=== PATIENT | female | born 1945 | race Caucasian/White ===

== ENCOUNTER → 2020-08-10 12:01 | Outpatient (CLI) | payer MEDICARE, SELFPAY ==
--- NOTE | ~2020-08-10 | MR_ITS ---
EXAMINATION: MR shoulder LT wo con DATE: 08/10/2020 13:01 INDICATION: Left shoulder pain TECHNIQUE: Magnetic resonance imaging (MRI) of the left shoulder was performed without intravenous co ntrast. Sequences included axial PD-weighted FS FSE, coronal oblique PD-weighted FS FSE, coronal obli que T2-weighted FS FSE, sagittal PD-weighted FS FSE, and sagittal T1-weighted SE. COMPARISON: None. FINDINGS: Coracoacromial arch: The acromion undersurface is curved in morphology (type II). The coracoacromial ligament is normal. M oderate acromioclavicular osteoarthritis with subarticular cystic change at both sides of the joint s pace. There is a 12 x 8 x 8 mm nodular region of heterogeneous increased fluid signal along the ceph alad margin of the acromioclavicular joint which suggests a ganglion cyst with synovitis. This medial ly underlies the marker indicating the lump of concern. Rotator cuff: Mild supraspinatus and infraspinatus tendinopathy without discrete tear. The teres minor and subscapu katerine tendons are normal. Normal rotator cuff muscle bulk and signal. Biceps tendon, glenoid labrum and glenohumeral cartilage: Mild tendinopathy and longitudinal split tearing of the long head of the biceps tendon. Mild glenohum eral osteoarthritis with deep chondral ulceration with underlying subcutaneous articular edema at the posterior glenoid. Less severe partial thickness cartilage loss with chondral surface irregularity a long the humeral head. Degenerative tearing of the anterosuperior to posterior glenoid labrum with mi ld underlying cystic change along the 1:00 position of the rim of the glenoid. There is additional de generative tearing at the 6:00 position of the inferior glenoid labrum. Fluid: Physiologic amount of fluid in the glenohumeral joint and biceps tendon sheath. No loose osteochondra l bodies. Small amount of fluid in the subacromial/subdeltoid bursa consistent with mild bursitis. Bones/other: Bone alignment is normal. No fracture or pathologic marrow replacing process. There is increased soft tissue with loss of the normal T1 fat signal at the rotator cuff interval which can be seen with adh esive capsulitis which is a clinical diagnosis. IMPRESSION: 1. Mild left glenohumeral osteoarthritis with high-grade chondromalacia along the posterior glenoid a nd with degenerative tearing along portions of the glenoid labrum. 2. Moderate acromioclavicular osteoarthritis with an 11 x 8 x 8 mm likely ganglion cyst with synoviti s cyst along the superior margin of the joint capsule which accounts for the reported lump. 3. Mild supraspinatus and infraspinatus tendinopathy without discrete tear. 4. Mild tendinopathy and longitudinal split tearing of the long head biceps tendon. 5. Loss of normal T1 fat signal at the rotator cuff interval which can be seen with adhesive capsulit is which is a clinical diagnosis. Reviewed, dictated and finalized at location B. IMPRESSION: 1. Mild left glenohumeral osteoarthritis with high-grade chondromalacia along t he posterior glenoid and with degenerative tearing along portions of the glenoi d labrum. 2. Moderate acromioclavicular osteoarthritis with an 11 x 8 x 8 mm likely gangl ion cyst with synovitis cyst along the superior margin of the joint capsule whi ch accounts for the reported lump. 3. Mild supraspinatus and infraspinatus tendinopathy without discrete tear. 4. Mild tendinopathy and longitudinal split tearing of the long head biceps ten don. 5. Loss of normal T1 fat signal at the rotator cuff interval which can be seen with adhesive capsulitis which is a clinical diagnosis.
== END ==
PROVIDERS: Visit Provider Nurse Practitioner Family
DX: M19.012 Primary osteoarthritis, left shoulder (principal)
CPT/HCPCS: 73221

== ENCOUNTER 2020-09-18 08:35 | Outpatient (CLI) | payer MEDICARE, SELFPAY ==
--- NOTE | 2020-09-18 08:00 | ECG_ITS ---
Measurements Intervals [place] Rate: 66 P: 62 NE: 159 QRS: 11 QRSD: 89 T: 58 QT: 381 QTc: 401 Interpretive Statements SINUS RHYTHM INCOMPLETE RIGHT BUNDLE BRANCH BLOCK DELAYED PRECORDIAL R/S TRANSITION BASELINE ARTIFACT- I, II, III, AVR, AVL, AVF BORDERLINE ECG Electronically Signed On 09-18-2020 8:49:53 CDT by Stanley Hinds D.O.
== END 2020-09-18 08:36 | disposition home or self-care (01) ==
LOC: ANHSURGERY 08:38
PROVIDERS: Visit Provider Orthopaedic Surgery
DX: E78.00 Pure hypercholesterolemia, unspecified (principal); Z01.818 Encounter for other preprocedural examination; I45.10 Unspecified right bundle-branch block
CPT/HCPCS: 93005

== ENCOUNTER → 2020-09-19 01:06 | Outpatient (CLI) | payer MEDICARE, SELFPAY ==
[2020-09-19 20:54] LABS: SARS-CoV-2 RNA PCR Negative
== END ==
PROVIDERS: Visit Provider Orthopaedic Surgery
DX: Z01.812 Encounter for preprocedural laboratory examination (principal); Z20.822 Contact with and (suspected) exposure to COVID-19
CPT/HCPCS: C9803; U0003; U0005

== ENCOUNTER 2020-09-23 00:33 | Day surgery (SDC) | payer MEDICARE, SELFPAY ==
[2020-09-14 14:29] VITALS: BMI 31.5
--- NOTE | 2020-09-22 08:28 | PM.IMHP ---
H&P: HPI History of Present Illness Date/Time: 09/22/20 08:28 Shoulder/Arm Injury/Condition 75 year old female with Lt shoulder pain. Pt. states that the pain started to occur in 2019, she states that there is NKI at today's visit. She states she takes ibuprofen PRN for the pain and inflammation. Pt. has had an MRI and is ready to proceed with the next POC. Dominant hand: right Current symptoms: Reports catching, weakness and crepitus Location: anterior Character: intermittent and other (achy ) Pain scale (0-10): 6 Onset: 1-3 months Exacerbated by: lifting, prolonged activity and reaching/overhead motion Previous treatments: Anti-inflammatory meds: left, Heat: left and Other: left (rest ) Improved by treatment/surgery: some Chief Complaint: shoulder pain Review of Systems Review of Systems: All systems reviewed & are unremarkable except as noted in HPI and below Constitutional: Constitutional: Denies headache(s) and Denies weakness Eyes: Eyes: Denies blurry vision, Denies change in vision and Denies loss of vision ENT: Denies dizziness, Denies dry mouth, Denies headache(s) and Denies nasal congestion Cardiovascular: Cardiovascular: Denies chest pain, Denies syncope, Denies leg edema and Denies dyspnea on exertion Respiratory: Respiratory: Denies cough and Denies dyspnea on exertion Gastrointestinal: Gastrointestinal: Denies abdominal pain, Denies constipation and Denies diarrhea Genitourinary: Genitourinary: Denies urinary frequency Musculoskeletal: Musculoskeletal: Reports as per HPI and Denies numbness Integumentary/Breasts: Skin/Breast: Reports system reviewed and no additional complaints, except as docu Neurologic: Denies dizziness, Denies syncope, Denies headache(s), Denies loss of vision, Denies numbness and Denies weakness Psychiatric: Psychiatric: Reports no additional psychiatric complaints Endocrine: Endocrine: Reports no additional endocrine complaints Hematologic/Lymphatic: Hematologic/Lymphatic: Reports no additional hematologic/lymphatic complaints [facility] Past Medical History Medical History AC joint pain Ganglion cyst Left shoulder pain Rotator cuff tear Rotator cuff tendinitis Family History Family History Other Family history of arthritis Social History Social History Smoking status: Never smoker Alcohol intake: current Spiritual care concerns: No Meds Home Medications and Allergies Home Medications Medication Instructions Recorded Confirmed Type biotin 2,500 mcg capsule 2,500 mcg PO DAILY 08/03/20 09/14/20 History gabapentin 400 mg capsule 400 mg PO TID 08/03/20 09/14/20 History ibuprofen 200 mg capsule 200 mg PO Q6H PRN 08/03/20 09/14/20 History rosuvastatin 5 mg tablet 5 mg PO DAILY 08/03/20 09/14/20 History chlorhexidine gluconate 4 % 1 applic TOPICAL ONCE #237 ml 08/26/20 09/14/20 Rx topical liquid cholecalciferol (vitamin D3) 50 mcg PO DAILY 09/14/20 09/14/20 History enalapril maleate 10 mg PO HS 09/14/20 09/14/20 History esomeprazole magnesium [Nexium] 20 mg PO DAILY 09/14/20 09/14/20 History lactobacillus combination no.4 3,000 mmu cells PO DAILY 09/14/20 09/14/20 History [Probiotic] Allergies Allergy/AdvReac Type Severity Reaction Status Date / Time amoxicillin Allergy Unknown Rash Verified 09/14/20 14:05 Exam Narrative: Exam Narrative: Exam Const Constitutional General: cooperative Nutritional Appearance: average body habitus Orientation/consciousness: patient oriented x3 Constitutional Limitations: no limitations HENMT Head: normal to inspection Ears: hearing grossly normal bilaterally General nose exam: Normal external nose present Face and sinus: normal facial exam Mouth: moist mucous membranes Teeth and gingiva: dentition normal Eyes General: appearance normal, bot
[2020-09-23] VITALS (8 sets, daily range): BP systolic 117–161; BP diastolic 60–85; PULSE 66–87; RESP 7–16; TEMP 36–36.3; O2SAT 96–100
--- NOTE | 2020-09-23 07:23 | WPDHPUPDATE1 ---
History and Physical Update Update Date/Time: 09/23/20 07:23 History and Physical has been reviewed, including an updated exam of the patient. There are NO changes in the patient's condition. Risks, benefits, and alternatives have been discussed and questions answered. Patient agrees to proceed with procedure.
--- NOTE | 2020-09-23 08:03 | WPDANESEPPF ---
Anes - Initial Pre Proc Eval Procedure: Operation Date: 09/23/20 13:30 Proposed Procedures p Removal Of Left Shoulder Ganglion Cyst, And Left Shoulder Injection - Shaq Morataya MD Date/Time: 09/23/20 08:03 Surgeon: Shaq Morataya MD Pre Op Diagnosis: Left Shoulder Ganglion cyst Removal,Left Injection Patient Data Age: 75 Gender: F Height: 1.5 m Weight: 70.79 kg Allergies Allergy/AdvReac Type Severity Reaction Status Date / Time amoxicillin Allergy Intermediate Rash Verified 09/23/20 11:47 Home Medications Medication Instructions Recorded Confirmed Type biotin 2,500 mcg capsule 2,500 mcg PO DAILY 08/03/20 09/23/20 History gabapentin 400 mg capsule 400 mg PO TID 08/03/20 09/23/20 History ibuprofen 200 mg capsule 200 mg PO Q6H PRN 08/03/20 09/23/20 History rosuvastatin 5 mg tablet 5 mg PO DAILY 08/03/20 09/23/20 History chlorhexidine gluconate 4 % 1 applic TOPICAL ONCE #237 ml 08/26/20 09/23/20 Rx topical liquid cholecalciferol (vitamin D3) 50 mcg PO DAILY 09/14/20 09/23/20 History enalapril maleate 10 mg PO HS 09/14/20 09/23/20 History esomeprazole magnesium [Nexium] 20 mg PO DAILY 09/14/20 09/23/20 History lactobacillus combination no.4 3,000 mmu cells PO DAILY 09/14/20 09/23/20 History [Probiotic] Patient hx anesthesia problems: none Family hx anesthesia problems: none PMFSH Past Medical History Medical History (Updated 09/23/20 @ 12:36 by Leo Gordon DO) AC joint pain Ganglion cyst GERD (gastroesophageal reflux disease) Hyperlipidemia Hypertension Left shoulder pain Osteoarthritis PONV (postoperative nausea and vomiting) Rotator cuff tear Rotator cuff tendinitis Family History Family History Other Family history of arthritis Social History Social History Smoking status: Never smoker Alcohol intake: current Living arrangements: with family Spiritual care concerns: No Anes - Eval Final PreProcedure Day of Procedure 09/23/20 08:03 Patient weight: obese Heart: regular rate and rhythm Lungs: clear to auscultation and normal air movement Airway: Mallampati scale class II Neurological: alert and oriented Last oral intake: >/= 8 hours ASA classification: III Emergent: no Anesthetic plan: proceed Anesthesia type and monitoring: general ETT and standard monitoring Informed Consent: The patient's anesthetic plan and its attendant risks and benefits were discussed with the patient/family/POA. Questions were solicited and answers provided to the satisfaction of the patient/family/POA.
[2020-09-23] MEDS: CELECOXIB 200 MG CAPSULE PO (12:15)
[2020-09-23] MEDS: LACTATED RINGERS 1,000 ML 30 ML IV CONT ×2 (12:15→14:30)
[2020-09-23] MEDS: ACETAMINOPHEN 500 MG TABLET 1000 MG PO (12:16)
[2020-09-23] MEDS: FAMOTIDINE 20 MG/2 ML VIAL IV PUSH (12:43)
[2020-09-23] MEDS: ceFAZolin 2 GM/D5W 50 ML 2 GM/50 ML BAG IVPB (13:08)
[2020-09-23] MEDS: methylPREDNISolone ACETATE 80 MG/ML VIAL IM (13:51)
[2020-09-23] MEDS: BUPIVACAINE HCL 0.5% PF 30 ML VIAL INFILTRATE (13:52)
--- NOTE | 2020-09-23 14:22 | PM.PROC ---
Procedure Note - Detailed Date of procedure: 09/23/20 Pre-op diagnosis: Left Shoulder Ganglion cyst, Ac Joint djd Post-op diagnosis: same Procedure performed: EXCISION OF GANGLION LEFT AC JOINT WITH DISTAL CLAVICLE EXCISION Description of procedure: THE PATIENT WAS TAKEN TO THE OR AND PLACED UNDER GENERAL ANESTHESIA THEN PLACED IN THE BEACH CHAIR POSITION. THE LEFT UPPER EXTREMITY WAS PREPPED AND DRAPED IN THE USUAL STERILE FASHION. AN INCISION WAS MADE OVER THE REGION OF THE AC JOINT. DISSECTION CONTINUED UNTIL THE GANGLION CYST WAS IDENTIFIED. THE CYST WAS REMOVED IN ITS ENTIRETY. THE STALK OF THE CYST WAS COMMUNICATING WITH THE AC JOINT. NEXT THE AC JOINT CAPSULE WAS INCISED AND A DISTAL CLAVICLE EXCISION WAS PREFORMED REMOVING ABOUT 0.5 CM FROM THE DISTAL CLAVICLE AND THE ACROMION.. THE WOUND WAS IRRIGATED COPIOUSLY. THE CAPSULE WAS REPAIRED WITH O VICRYL SUTURE. THE SUBCUTANEOUS LAYER WAS REPAIRED WITH 2-0 VICRYL AND THE SKIN WITH A 3-0 BARBED SUTURE. SKIN GLUE WAS PLACED WELL AND THEN A STERILE DRESSING WAS APPLIED. NEXT THE LEFT GLENOHUMERAL JOINT WAS INJECTED WITH DEPO MEDROL 80 MG 1 CC AND 5 CC OF MARCAINE 0.5% WITHOUT EPINEPHRINE. THE PATIENT WAS EXTUBATED AND SENT TO RECOVERY ROOM IN STABLE CONDITION. Anesthesia: GETA Surgeon: Shaq Morataya MD Estimated blood loss (mL): 10 Drains: No Packing: No Pathology: yes Complications: No immediate complications Condition: stable Disposition: PACU
== END 2020-09-23 16:07 | disposition home or self-care (01) ==
PROVIDERS: Visit Provider Orthopaedic Surgery
PROC: (CPT 23076; principal; 2020-09-23 13:30)
DX: M67.412 Ganglion, left shoulder (principal); M24.012 Loose body in left shoulder; I10 Essential (primary) hypertension; E78.5 Hyperlipidemia, unspecified; K21.9 Gastro-esophageal reflux disease without esophagitis; E66.9 Obesity, unspecified; Z68.31 Body mass index [BMI] 31.0-31.9, adult
CPT/HCPCS: 23076; 23120; 88305; A4565; A9270; J0330; J0690; J1040; J1100; J2250; J2405; J2704; J3010; J7120

== ENCOUNTER 2021-02-26 09:50 | Outpatient (CLI) | payer MEDICARE, SELFPAY | END 2021-02-26 09:51 | disposition home or self-care (01) | LOC: ANHAUDIO 09:51 | PROVIDERS: Visit Provider Otolaryngology | DX: H69.83 Other specified disorders of Eustachian tube, bilateral (principal) | CPT/HCPCS: 92557; 92567 ==

== ENCOUNTER 2023-06-19 11:27 | Emergency (ER) | payer MEDICARE, SELFPAY ==
[2023-06-19 11:43] VITALS: BP 157/82; PULSE 78; RESP 16; TEMP 36.3; O2SAT 98
--- NOTE | 2023-06-19 11:43 | ED.HEATRA ---
HPI - Head Injury General Chief complaint: Head Injury Stated complaint: Injured Head Time Seen by Provider: 06/19/23 11:43 Source: patient Mode of arrival: ambulatory Limitations: no limitations History of Present Illness HPI Narrative: 78-year-old female presents stating she fell backwards on ice in parking lot and hit her head. Was able to get up on her own. Denies LOC. was bringing her friend to facility for primary care physician appointment. Denies headache, dizziness, fatigue, nausea, vision changes. Was told by her friends primary care physician that she should come to urgent care to be seen for follow-up. Patient has hematoma to scalp, no other complaints today. All systems reviewed and negative except as noted above. Related Data Home Medications Medication Instructions Recorded Confirmed biotin 2,500 mcg capsule 2,500 mcg PO DAILY 08/03/20 12/27/21 gabapentin 400 mg capsule 400 mg PO TID 08/03/20 12/27/21 rosuvastatin 5 mg tablet 5 mg PO DAILY 08/03/20 12/27/21 cholecalciferol (vitamin D3) 50 50 mcg PO DAILY 09/14/20 12/27/21 mcg (2,000 unit) tablet enalapril maleate 10 mg tablet 10 mg PO HS 09/14/20 12/27/21 esomeprazole magnesium 20 mg 20 mg PO DAILY 09/14/20 12/27/21 capsule,delayed release (Nexium) Allergies Allergy/AdvReac Type Severity Reaction Status Date / Time amoxicillin Allergy Intermediate Rash Verified 12/27/21 14:05 amoxicillin Allergy Unknown Rash Uncoded 12/27/21 14:05 Review of Systems Review of Systems: CONSTITUTIONAL: Denies fever, chills, or sweats. EYES: Denies visual changes, redness, or discharge. ENT: Denies rhinorrhea, congestion, sore throat, or otalgia. CARDIOVASCULAR: Denies chest pain, palpitations, or edema. RESPIRATORY: Denies cough or dyspnea. GASTROINTESTINAL: Denies abdominal pain, nausea, vomiting, or diarrhea. GENITOURINARY: Denies dysuria or hematuria. SKIN: Denies rash or itching. Reports hematoma to scalp from fall. MUSCULOSKELETAL: Denies back pain, joint pain, or myalgia. NEUROLOGIC: Denies headache, numbness, or weakness. PSYCHIATRIC: Denies anxiety or depression. All other systems reviewed are negative, except as documented in HPI. PMFSH Past Medical History Medical History (Updated 06/19/23 @ 11:52 by Tangela Buchanan NP) AC joint pain Chronic pain of right knee Effusion of right knee Ganglion cyst GERD (gastroesophageal reflux disease) Hyperlipidemia Hypertension Left knee DJD Left shoulder pain Osteoarthritis PONV (postoperative nausea and vomiting) Primary osteoarthritis of right knee Rotator cuff tear Rotator cuff tendinitis Surgical History Surgical History (Updated 12/27/21 @ 14:06 by Lisa Curtis) No history of previous surgery Family History Family History Mother Heart disease Other Family history of arthritis Social History Social History (Updated 12/27/21 @ 14:06 by Lisa Curtis) Smoking status: Never smoker Alcohol intake: never Substance use: never Substance use type: does not use Living arrangements: with family Occupation/Education: retired Gender identity (if verbalized by the patient): Female Spiritual care concerns: No Comments At time of signature, agree with nursing past medical, surgical, social and family history. There is no relevant family history pertinent to the presenting complaint. Exam Narrative: GENERAL: This is a well-nourished, well-developed patient, in no apparent distress. HEAD: approx. 2cm hematoma to occiput. EYES: PERRL. Sclera clear/white. Vision is grossly intact. Extraocular motions intact. EARS: External ears normal NOSE: External nose normal NECK: Neck supple, non-tender without lymphadenopathy, masses or thyromegaly. CARDIOVASCULAR: Regular rate and rhythm without murmurs, gallops, or rubs. RESPIRATORY: Clear to auscultation. Breath sounds equal bilaterally. No wheezes, rales, or rhonc
== END 2023-06-19 11:55 | disposition home or self-care (01) ==
PROVIDERS: Emergency Provider Nurse Practitioner Family; PCP Family Medicine
DX: S00.03XA Contusion of scalp, initial encounter (principal); S09.90XA Unspecified injury of head, initial encounter; W00.0XXA Fall on same level due to ice and snow, initial encounter; K21.9 Gastro-esophageal reflux disease without esophagitis; E78.5 Hyperlipidemia, unspecified; I10 Essential (primary) hypertension; M17.0 Bilateral primary osteoarthritis of knee
CPT/HCPCS: 99213; G0463

== ENCOUNTER 2023-06-19 13:41 | Emergency (ER) | payer MEDICARE, SELFPAY ==
--- NOTE | ~2023-06-19 | CT_ITS ---
EXAMINATION: CT cervical spine wo con DATE: 06/19/2023 16:04 INDICATION: Head injury. TECHNIQUE: Computed tomography (CT) of the cervical spine was performed without intravenous contrast. Automated exposure control and iterative reconstruction technique were employed. The dose-length pro duct was 225.03 mGy-cm. COMPARISON: Cervical spine radiographs 03/13/2013 FINDINGS: There is 2 mm anterolisthesis of C3 on C4 and 2 mm retrolisthesis of C4 on C5. There is 2 m m anterolisthesis of T1 on T2 and T2 on T3. Vertebral body heights are normal. There is mildly decrea sed disc height at C2-C3 and severely decreased disc height from C4-C5 through C7-T1: The following d isc levels are specifically discussed: C2-C3: There is severe bilateral severe bilateral uncovertebral joint osteoarthritis. There is mild b ilateral facet joint osteoarthritis. There is mild left neural foraminal stenosis. There is no centra l canal stenosis. C3-C4: There is severe bilateral uncovertebral joint osteoarthritis. There is severe bilateral facet joint osteoarthritis. There is mild bilateral neural foraminal stenosis. There is mild central canal stenosis. C4-C5: There is severe bilateral uncovertebral joint osteoarthritis. There is mild bilateral facet atlib int osteoarthritis. There is moderate right and mild left neural foraminal stenosis. There is mild ce ntral canal stenosis. C5-C6: There is severe bilateral uncovertebral joint osteoarthritis. There is moderate right and mild left facet joint osteoarthritis. There is moderate right and mild left neural foraminal stenosis. Th ere is mild central canal stenosis. C6-C7: There is severe bilateral uncovertebral joint osteoarthritis. There is severe right and modera te left facet joint osteoarthritis. There is mild bilateral neural foraminal stenosis. There is mild central canal stenosis. C7-T1: There is severe bilateral uncovertebral joint osteoarthritis. There is severe bilateral facet joint osteoarthritis. There is mild bilateral neural foraminal stenosis. There is mild central canal stenosis. IMPRESSION: 1. No fracture. 2. Severe cervical spondylosis. Reviewed, dictated and finalized at location E. HOLOGIST RESEARCH ASSISTANT
--- NOTE | ~2023-06-19 | CT_ITS ---
EXAMINATION: CT brain wo con DATE: 06/19/2023 16:04 INDICATION: Headache. Head injury. TECHNIQUE: Computed tomography (CT) of the head was performed without intravenous contrast. The mA wa s adjusted according to patient size. Iterative reconstruction technique was employed. The dose-lengt h product was 605.33 mGy-cm. COMPARISON: None FINDINGS: There are scattered areas of low attenuation in the cerebral white matter, which is within normal limits for the patient's age. There is no intracranial hemorrhage, acute infarction, or abnorm al intracranial mass lesion. The ventricles are normal in size. The orbits are normal. There is mild mucosal thickening in the ethmoid sinuses. There is a trace left mastoid effusion. IMPRESSION: 1. Normal aging brain. Reviewed, dictated and finalized at location E. RVISOR INSECTICIDE IMPRESSION: 1. Normal aging brain.
[2023-06-19 14:02] VITALS: BP 144/78; PULSE 76; RESP 16; TEMP 36.6; O2SAT 99
--- NOTE | 2023-06-19 16:38 | ED.FALL ---
HPI - Fall General Chief Complaint: Fall Stated Complaint: fall, head injury Time Seen by Provider: 06/19/23 16:22 History of Present Illness HPI Narrative: 78-year-old female presenting to the emergency department after having a ground fall. Patient was walking outside when she slipped on the ice. Patient fell back and struck her head. The patient denies any loss consciousness. Patient did have a headache for approximately 10 minutes but states since resolved. Patient denies any other pain or injury. Related Data Home Medications Medication Instructions Recorded Confirmed biotin 2,500 mcg capsule 2,500 mcg PO DAILY 08/03/20 12/27/21 gabapentin 400 mg capsule 400 mg PO TID 08/03/20 12/27/21 rosuvastatin 5 mg tablet 5 mg PO DAILY 08/03/20 12/27/21 cholecalciferol (vitamin D3) 50 50 mcg PO DAILY 09/14/20 12/27/21 mcg (2,000 unit) tablet enalapril maleate 10 mg tablet 10 mg PO HS 09/14/20 12/27/21 esomeprazole magnesium 20 mg 20 mg PO DAILY 09/14/20 12/27/21 capsule,delayed release (Nexium) Allergies Allergy/AdvReac Type Severity Reaction Status Date / Time amoxicillin Allergy Intermediate Rash Verified 12/27/21 14:05 amoxicillin Allergy Unknown Rash Uncoded 12/27/21 14:05 Review of Systems Review of Systems: All systems reviewed & are unremarkable except as noted in HPI and below PMFSH Past Medical History Medical History (Updated 06/20/23 @ 00:00 by Charlette Tompkins) AC joint pain Chronic pain of right knee Effusion of right knee Ganglion cyst GERD (gastroesophageal reflux disease) Hyperlipidemia Hypertension Left knee DJD Left shoulder pain Osteoarthritis PONV (postoperative nausea and vomiting) Primary osteoarthritis of right knee Rotator cuff tear Rotator cuff tendinitis Surgical History Surgical History (Updated 12/27/21 @ 14:06 by Lisa Curtis) No history of previous surgery Family History Family History Mother Heart disease Other Family history of arthritis Social History Social History (Updated 12/27/21 @ 14:06 by Lisa Curtis) Smoking status: Never smoker Alcohol intake: never Substance use: never Substance use type: does not use Living arrangements: with family Occupation/Education: retired Gender identity (if verbalized by the patient): Female Spiritual care concerns: No Exam Narrative: APPEARANCE: Well appearing, no pain, no distress, well-nourished. HEAD: normocephalic, atraumatic. EYES: PERRLA/EOMI, conjunctivae clear. NOSE: Normal no drainage EARS:TMS clear with good light reflex. THROAT: Pharynx clear, no exudate. NECK: Supple. No adenopathy, no masses. RESPIRATORY: Airway patent, respirations nonlabored. Clear to auscultation bilaterally, no rales, rhonchi, wheezing. CARDIOVASCULAR: Regular rate and rhythm without murmurs rubs or gallops. ABDOMINAL: Soft, nontender, nondistended, normal bowel sounds MUSCULOSKELETAL: Moves all extremities. Strength/ROM intact, No edema, No calf tenderness. NEURO: Alert. Cranial nerves II through XII intact. Good gait. Good coordination SKIN: Warm, dry. Normal Color PSYCHIATRIC: Normal affect/mood. Course Course Emergency Course: 78-year-old female presenting to the emergency department for evaluation after a ground level fall. Patient's head and cervical spine CT were negative. Vital Signs Vital signs: Vital Signs Temperature 98 F 06/19/23 14:02 Pulse Rate 76 06/19/23 14:02 Respiratory Rate 16 06/19/23 14:02 Blood Pressure 144/78 H 06/19/23 14:02 Pulse Oximetry 99 06/19/23 14:02 Oxygen Delivery Room Air 06/19/23 14:02 Temperature 98 F 06/19/23 14:02 Pulse Rate 76 06/19/23 14:02 Respiratory Rate 16 06/19/23 14:02 Blood Pressure 144/78 H 06/19/23 14:02 Pulse Oximetry 99 06/19/23 14:02 Oxygen Delivery Room Air 06/19/23 14:02 MDM - Fall Differential Diagnosis Differential diagnosis: L
== END 2023-06-19 16:50 | disposition home or self-care (01) ==
LOC: ANHED 16:42
PROVIDERS: Emergency Provider Emergency Medicine; PCP Family Medicine
DX: S09.90XA Unspecified injury of head, initial encounter (principal); I10 Essential (primary) hypertension; E78.5 Hyperlipidemia, unspecified; K21.9 Gastro-esophageal reflux disease without esophagitis; M17.0 Bilateral primary osteoarthritis of knee; M47.812 Spondylosis without myelopathy or radiculopathy, cervical region; W00.0XXA Fall on same level due to ice and snow, initial encounter
CPT/HCPCS: 70450; 72125; 99284

== ENCOUNTER 2023-06-22 10:49 | Outpatient (CLI) | payer MEDICARE, SELFPAY ==
--- NOTE | 2023-06-22 11:09 | ECG_ITS ---
Measurements Intervals [place] Rate: 71 P: 67 VT: 152 QRS: 9 QRSD: 78 T: 66 QT: 372 QTc: 406 Interpretive Statements SINUS RHYTHM INCOMPLETE RIGHT BUNDLE BRANCH BLOCK BORDERLINE ST-T WAVE ABNORMALITY- ANTEROLAT/HIGH LAT LEADS BASELINE ARTIFACT- II, III, AVR, AVL, AVF BORDERLINE ECG COMPARED TO ECG 09/18/2020 08:46:48 ST-T WAVE ABNORMALITY NOW PRESENT Electronically Signed On 06-22-2023 11:35:26 PROCESS EXCELLENCE MANAGER by Stanley Hinds D.O.
[2023-06-22 11:30] LABS: Appearance Urine Clear (Clear); Bilirubin Urine Negative (Negative); Blood Urine Negative (Negative); Color Urine Yellow (Yellow); Glucose Urine UA Negative (Negative); Ketones Urine Negative (Negative); Leukocyte Esterase Ur Negative LEU/UL (Negative); Nitrate Urine Negative (Negative); Protein Urine Negative (Negative); Specific Grav Ur 1.018 (1.001-1.035); pH Urine 6.5 (5.0-9.0)
[2023-06-22 11:32] LABS: Add Urine Microscopic? NO
== END 2023-06-22 10:50 | disposition home or self-care (01) ==
PROVIDERS: PCP Family Medicine; Visit Provider Nurse Practitioner Family
DX: R53.83 Other fatigue (principal); I45.10 Unspecified right bundle-branch block
CPT/HCPCS: 81003; 93005

== ENCOUNTER 2023-09-05 10:00 | Outpatient (CLI) | payer MEDICARE, SELFPAY ==
[2023-09-05 11:11] LABS: Basophils Absolute Auto 0.1 K/mm3 (0.0-0.1); Basophils Percent Auto 1.1 % (0.2-1.2); Eosinophils Absolute Auto 0.1 K/mm3 (0-0.3); Eosinophils Percent Auto 1.1 % (0-4.4); Hemoglobin 13.4 g/dL (12.0-15.0); Immature Granulocyte Absolute 0.02 K/mm3 (0.00-0.031); Immature Granulocyte Percent A 0.4 % (0-0.5); Lymphocytes Absolute Auto 0.99 K/mm3 (0.9-3.2); Lymphocytes Percent Auto 18.3 % (18.3-44.2); Mean Corpuscular HGB Conc 32.7 g/dl (32-36); Mean Corpuscular Hemoglobin 29.8 pg (26-34); Mean Corpuscular Volume 91.1 fl (80-100); Mean Platelet Volume 9.7 fl (7.4-10.4); Monocytes Absolute Auto 0.5 K/mm3 (0.1-0.6); Monocytes Percent Auto 8.7 % (2.6-8.5); Neutrophils Absolute Auto 3.8 K/mm3 (1.3-6.7); Neutrophils Percent Auto 70.4 % (45.5-73.1); Platelet Count Result 181 k/mm3 (150-375); Red Cell Distribution Width 12.8 % (11.5-14.5); White Blood Count 5.4 K/mm3 (4.5-10.0)
[2023-09-05 11:12] LABS: Appearance Urine Clear (Clear); Bilirubin Urine Negative (Negative); Blood Urine Negative (Negative); Color Urine Dark Yellow (Yellow); Glucose Urine UA Negative (Negative); Ketones Urine Negative (Negative); Leukocyte Esterase Ur Negative LEU/UL (Negative); Nitrate Urine Negative (Negative); Protein Urine Negative (Negative); Specific Grav Ur 1.014 (1.001-1.035); Urobilinogen Urine 0.2 mg/dL (<2.0)
[2023-09-05 11:23] LABS: Albumin Level 4.9 g/dL (3.5-5.1); Anion Gap 8 mmol/L (4-12); Blood Urea Nitrogen 18 mg/dL (7-17); Calcium 9.6 mg/dL (8.4-10.2); Carbon Dioxide 28 mmol/L (22-30); Chloride 105 mmol/L (98-107); Estimated Glomerular Filt Rate > 60; Glucose 104 mg/dL (65-110); Hemoglobin A1C 5.6 % (<5.7); Potassium 4.2 mmol/L (3.4-5.0); Sodium 141 mmol/L (137-145)
[2023-09-05 11:25] LABS: Partial Thromboplastin Time 27.8 Seconds (22.3-36.8); Prothrombin Time 13.8 Seconds (11.1-14.7)
[2023-09-05 11:26] LABS: Urine Cotinine NEGATIVE
[2023-09-05 11:51] LABS: Add Urine Microscopic? NO
[2023-09-05 12:25] LABS: MRSA (PCR) NOT DETECTED (NOT DETECTE)
== END 2023-09-05 10:01 | disposition home or self-care (01) ==
LOC: ANHSURGERY 10:05
PROVIDERS: PCP Family Medicine; Visit Provider Orthopaedic Surgery
DX: M17.11 Unilateral primary osteoarthritis, right knee (principal); Z01.818 Encounter for other preprocedural examination
CPT/HCPCS: 80048; 80307; 81003; 82040; 83036; 85025; 85610; 85730; 87641

== ENCOUNTER 2023-09-19 00:25 | Day surgery (SDC) | payer MEDICARE, SELFPAY ==
--- NOTE | 2023-09-05 09:40 | PC.NURSE ---
PRE-OP INSTRUCTIONS, PLEASE READ CAREFULLY Report to the Outpatient Waiting Room, entrance under the green pavilion located off [facility], at time _1000_ on date _09/19/23_. Planned Procedure Time: _1200_. PACK A SMALL OVERNIGHT BAG AND LEAVE IN THE CAR ALONG WITH YOUR WALKER Time changes happen often and if your time is changed the preop area will call you the afternoon before. - You and your visitor will be asked to self-screen and do not enter if you have any COVID symptoms. - A mask is optional within the hospital at this time. -VISITING HOURS 8AM-8PM Patients may have clear liquids (water, carbonated beverages, clear teas, apple juice) until 3 hours prior to surgery (0900 AM) with a maximum of 20 ounces. - No food from midnight until time of surgery Take the following medications with a SIP of water the morning of surgery: _GABAPENTIN, & TYLENOL IF NEEDED_ DO NOT STOP ANY OF YOUR OTHER PRESCRIPTION MEDICATIONS PRIOR TO SURGERY ?EXCEPT THE FOLLOWING Medications to discontinue per DR. DONOVAN - _ IBUPROFEN 7 DAYS PRIOR TO SURGERY, Date to take last dose 09/11/23_ Please no make-up, nail stateless, hairspray, perfume, deodorant, or body powder the day of surgery. No jewelry (including any body piercings) or valuables the day of surgery, leave them at home. Please take a shower or bath the night before, or the morning of, surgery with an antibacterial soap. Wear comfortable, loose fitting clothing. - Jewelry must be removed prior to entering the operating room. Rings and piercings that are not removed may be cut off. - The hospital will not accept responsibility for valuables. - Please leave all valuables, including medications, at home the day of surgery. If you are going home after surgery, a licensed hook up driver must drive you home. - NO public transportation without another adult if you receive anesthesia. - We recommend that an adult stay with you for 24 hours following discharge. - We also recommend that you do not drive, make important decision, drink alcoholic beverages, or take any drugs that were not prescribed by your health care provider for at least 24 hours after your discharge time. Follow any additional instructions given to you from your surgeon. HIBICLENS DIRECTED If you or anyone in your household have experienced Covid symptoms in the past week, please notify your surgeon or the nurse liaison at the phone number below for possible testing. Instructions given to _PATIENT & SPOUSE_and asked if any additional questions and then verbalized understanding. Patient advised to call surgeon office or pre surgery nurse liaison [phone] if any additional questions.
[2023-09-05 10:25] VITALS: BP 158/72; PULSE 66; RESP 18; TEMP 36.8; O2SAT 100; BMI 31.0
[2023-09-19] VITALS (15 sets, daily range): BP systolic 121–165; BP diastolic 57–84; PULSE 65–84; RESP 12–21; TEMP 36.2–36.6; O2SAT 92–100
--- NOTE | ~2023-09-19 | XR_ITS ---
EXAMINATION: [id number] DATE: 09/19/2023 15:05 CDT INDICATION: Right total knee arthroplasty TECHNIQUE: 2 views right knee FINDINGS: There is a right total knee arthroplasty in expected position. Subcutaneous gas with fluid and air in the joint and overlying skin sobeida are consistent with recent surgery. No evidence of p eriprosthetic fracture. IMPRESSION: 1. Recent right total knee arthroplasty. Reviewed, dictated and finalized at location B.
--- NOTE | 2023-09-19 10:28 | WPDHPUPDATE1 ---
History and Physical Update Update Date/Time: 09/19/23 10:28 History and Physical has been reviewed, including an updated exam of the patient. There are NO changes in the patient's condition. Risks, benefits, and alternatives have been discussed and questions answered. Patient agrees to proceed with procedure.
[2023-09-19] MEDS: LACTATED RINGERS 1,000 ML 30 ML IV CONT ×2 (10:30→14:52)
[2023-09-19] MEDS: ACETAMINOPHEN 500 MG TABLET 1000 MG PO (11:00)
[2023-09-19] MEDS: TRANEXAMIC ACID 1,000MG/ISO100 1,000 MG/100 ML BAG 200 MG IVPB (11:00)
--- NOTE | 2023-09-19 11:47 | WPDANESEPPF ---
Anes - Initial Pre Proc Eval Procedure: Operation Date: 09/19/23 12:00 Proposed Procedures p Right Total Knee Arthroplasty - Shaq Morataya MD Date/Time: 09/19/23 11:47 Surgeon: Shaq Morataya MD Pre Op Diagnosis: right knee OA Patient Data Age: 78 Gender: F Height: 1.47 m Weight: 67.4 kg Last Vital Signs Temp 98.3 F 09/05/23 10:25 Pulse 66 09/05/23 10:25 Resp 18 09/05/23 10:25 BP 158/72 H 09/05/23 10:25 Pulse Ox 100 09/05/23 10:25 O2 Del Method Room Air 09/05/23 10:25 Allergies Allergy/AdvReac Type Severity Reaction Status Date / Time amoxicillin Allergy Intermediate Rash Verified 09/19/23 11:46 Home Medications Medication Instructions Recorded Confirmed Type gabapentin 400 mg capsule 400 mg PO TID 08/03/20 09/19/23 History rosuvastatin 5 mg tablet 5 mg PO DAILY 08/03/20 09/19/23 History cholecalciferol (vitamin D3) 50 50 mcg PO DAILY 09/14/20 09/19/23 History mcg (2,000 unit) tablet enalapril maleate 10 mg tablet 10 mg PO HS 09/14/20 09/19/23 History esomeprazole magnesium 20 mg 20 mg PO DAILY 09/14/20 09/19/23 History capsule,delayed release (Nexium) acetaminophen 500 mg tablet 500 mg PO BID 09/05/23 09/19/23 History chlorhexidine gluconate 4 % 1 applic topical DAILY #237 mL 09/05/23 09/19/23 Rx topical liquid (Hibiclens) clobetasol 0.05 % scalp solution See Rx Instructions .Route .COMPLEX 09/05/23 09/19/23 History fluocinolone 0.01 % topical 1 applic topical BID 09/05/23 09/19/23 History solution fluticasone propionate 50 2 spray intranasal DAILY 09/05/23 09/19/23 History mcg/actuation nasal spray,suspension hydrocortisone 2.5 % topical 1 applic topical TID PRN 09/05/23 09/19/23 History ointment Hemorrhoids ibuprofen 200 mg tablet 400 mg PO BID 09/05/23 09/19/23 History Laboratory Tests 09/19/23 10:40 Blood Type Pending Antibody Screen Pending Patient hx anesthesia problems: none Family hx anesthesia problems: none Results Review: All pre-operative results and documents have been reviewed as part of the pre-operative evaluation. [facility] Past Medical History Medical History AC joint pain Chronic pain of right knee Effusion of right knee Ganglion cyst GERD (gastroesophageal reflux disease) Hyperlipidemia Hypertension Left knee DJD Left shoulder pain Osteoarthritis Other fatigue PONV (postoperative nausea and vomiting) Primary osteoarthritis of right knee Right knee DJD Rotator cuff tear Rotator cuff tendinitis Surgical History Surgical History No history of previous surgery Family History Family History Mother Heart disease Other Family history of arthritis Social History Social History Smoking status: Never smoker Second hand tobacco smoke exposure: No Additional smoking assessment comments: PT DENIES ALL FORMS OF TOBACCO USE Alcohol intake: current Alcohol use details: RARELY - STATES 3-4 DRINKS/YEAR Substance use: never Substance use type: does not use Living arrangements: with family Occupation/Education: retired Gender identity (if verbalized by the patient): Female Spiritual care concerns: No Anes - Eval Final PreProcedure Day of Procedure 09/19/23 11:47 Patient weight: overweight Heart: regular rate and rhythm Lungs: clear to auscultation Airway: Mallampati scale and special considerations (many caps, all intact per pt. ) Neurological: alert and oriented Last oral intake: >/= 8 hours ASA classification: II Emergent: no Anesthetic plan: proceed Anesthesia type and monitoring: general LMA and standard monitoring Results Review: All pre-operative results and documents have been reviewed as part of the pre-operative eval
--- NOTE | 2023-09-19 12:49 | WPDANESPNB ---
Anes - Peripheral Nerve Block Date/Time: 09/19/23 12:49 I have discussed with the patient/family/POA the placement of a peripheral nerve block for post-operative pain management, including associated risks, benefits, complications, and side effects. Alternative methods of post-operative analgesia were detailed. Questions were solicited and answers provided to the satisfaction of the patient/family/POA. Time-Out: A pre-procedural Time-Out was completed immediately before starting the procedure and confirmed: Patient Identification, Site, Procedure, Patient Position and the Availability of Requisite Equipment. Clinical Indications: Acute post-operative pain management requested by the operative surgeon. Nerve Block Insertion Note Anes-nerve block: adductor canal Patient position: supine Skin prep: chlorhexidine Needle: 22 gauge, stimulating, insulated echogenic needle. Needle length: 80 mm Technique: ultrasound Injectate: other (Bupiv 0.5%, 15 mls. ) Observations: tolerated well Complications: none Procedure start time:: 1230 Procedure end time:: 1240
[2023-09-19] MEDS: ceFAZolin 2 GM/D5W 50 ML 2 GM/50 ML BAG IVPB ×2 (13:07→20:22)
[2023-09-19] MEDS: TRANEXAMIC ACID 1,000 MG/10 ML AMPUL 1000 MG IV PUSH (14:14)
--- NOTE | 2023-09-19 14:44 | W.PM.PROC2 ---
Procedure Note - Detailed Date of Procedure 09/19/23 Pre-op Diagnosis right knee OA Post-op Diagnosis Same Procedure Performed R TKA Surgeon Shaq Morataya MD Anesthesia General Description of Procedure THE RIGHT KNEE WAS PREPPED AND DRAPED IN THE STERILE FASHION. THERE WAS A 10 DEGREE FLEXION CONTRACTURE. A MIDLINE SKIN INCISION WAS MADE. A MEDIAL PARAPATELLAR ARTHROTOMY WAS MADE. THE PATELLA WAS EVERTED. THERE WAS TRICOMPARTMENT DJD. THERE WAS MINIMAL PATELLA DJD. AN INTRAMEDULLARY CALDERON WAS PLACED IN THE FEMUR. A DISTAL FEMORAL CUT WAS MADE IN 5 DEGREES OF VALGUS REMOVING APPROXIMATELY 9 MM OF BONE FROM THE DISTAL FEMUR. THE FEMUR WAS SIZED TO 60. A 60 FEMORAL CUTTING BLOCK WAS PLACED IN 3 DEGREES OF EXTERNAL ROTATION AND IN ALIGNMENT WITH SAMIR'S LINE AND THE TRANSEPICONDYLAR AXIS. ANTERIOR POSTERIOR AND CHAMFER CUTS WERE MADE. THE CUTS WERE EXCELLENT. NEXT AN INTRAMEDULLARY CUTTING GUIDE WAS PLACED IN THE TIBIA. A TRANS TIBIAL CUT WAS MADE ALONG THE LONG AXIS OF THE TIBIA. APPROXIMATELY 10 MM OF BONE WAS REMOVED FROM THE HIGH SIDE OF THE TIBIA. THE TIBIA WAS THEN PLANED TO A SMOOTH SURFACE. POSTERIOR FEMORAL OSTEOPHYTES WERE REMOVED FROM THE FEMORAL CONDYLES. A 71 TIBIAL TRIAL WAS PLACED IN ALIGNMENT WITH THE 1/3 MEDIAL ASPECT OF THE TIBIAL TUBERCLE. THEN A 60 FEMORAL TRIAL COMPONENT WAS PLACED. BOTH HAD EXCELLENT FITS. EVENTUALLY A 12 POLYETHYLENE TRIAL COMPONENT WAS PLACED. THE KNEE WAS TAKEN THROUGH A RANGE OF MOTION. THE KNEE CAME OUT TO FULL EXTENSION. THERE WAS NO ABNORMAL TILT TO THE PATELLA. THERE WAS GOOD A/P AND VARUS/VALGUS STABILITY. THERE WAS NO EXCESSIVE ROLL BACK WITH FLEXION. THE TRIAL COMPONENTS WERE REMOVED. THEN A 60 FEMORAL COMPONENT AND 71 TIBIAL COMPONENT WITH A 12 POLYETHYLENE COMPONENT WERE CEMENTED INTO PLACE. ONCE THE CEMENT WAS HARD THE KNEE WAS TAKEN THROUGH A ROM AGAIN AND FOUND TO BE STABLE WITH NO PATELLA TILT NO EXCESSIVE ROLL BACK WITH FLEXION AND GOOD STABILITY WITH COMPLETE AND FULL EXTENSION. THE KNEE WAS IRRIGATED WITH STERILE BETADINE AND WATER FOR ABOUT 3 MINUTES. THE BLEEDERS WERE CAUTERIZED. THE ARTHROTOMY WAS REPAIRED WITH NUMBER 1 VICRYL. THE SUB CUTANEOUS LAYER WITH 2-0 VICRYL AND THE SKIN WITH RUTH. THE WOUND WAS WASHED AND A STERILE DRESSING WAS APPLIED. PATIENT WAS EXTUBATED. Estimated Blood Loss 100 Pathology None sent Complications No immediate complications Condition Stable Disposition PACU
[2023-09-19] MEDS: fentaNYL CITRATE INJ (*CRX) 100 MCG/2 ML VIAL 25 MCG IV PUSH ×4 (15:29→15:51)
[2023-09-19] MEDS: oxyCODONE HCL (*CRX) 5 MG TAB IR PO (16:05)
--- NOTE | 2023-09-19 17:00 | ADMGEN ---
This patient, Rola Roach, was admitted to Medical Room 249-01. Patient/family oriented to hospital policies and general routines including ID bracelet, bed and alarms, visiting hours, pain management, procedures, bathroom and other care routines, personal items, smoking policy, room service/diet, and visiting hours. Information on how to activate the Rapid Response Team has been discussed. Patient/Family are encouraged to report perceived risks to care and to ask questions if they do not understand what they are told or what they should do.
[2023-09-19] MEDS: CELECOXIB 200 MG CAPSULE PO (18:01)
[2023-09-19] MEDS: oxyCODONE/ACETAMINOPHEN (*CRX) 5-325 MG TABLET 1 TABLET PO ×2 (19:37→23:47)
[2023-09-19] MEDS: ENALAPRIL MALEATE 10 MG TABLET PO (20:20)
[2023-09-19] MEDS: ASPIRIN 325 MG ENTERIC TABLET PO (20:20)
[2023-09-19] MEDS: FAMOTIDINE 20 MG TABLET PO (20:20)
[2023-09-19] MEDS: ONDANSETRON INJ 4 MG/2 ML VIAL IV PUSH (20:27)
[2023-09-19] MEDS: diazePAM (*CRX) 5 MG TABLET PO (23:47)
[2023-09-20 01:23] VITALS: BP 121/60; PULSE 65; RESP 18; TEMP 37; O2SAT 92
[2023-09-20] MEDS: ceFAZolin 2 GM/D5W 50 ML 2 GM/50 ML BAG IVPB ×2 (04:35→12:27)
[2023-09-20] MEDS: oxyCODONE/ACETAMINOPHEN (*CRX) 5-325 MG TABLET 1 TABLET PO ×3 (04:39→15:55)
[2023-09-20 04:51] VITALS: BP 118/67; PULSE 70; RESP 18; TEMP 37.1; O2SAT 96
[2023-09-20 06:03] LABS: Basophils Percent Auto 0.1 % (0.2-1.2); Hematocrit 36.2 % (37.0-47.0); Hemoglobin 11.6 g/dL (12.0-15.0); Immature Granulocyte Absolute 0.08 K/mm3 (0.00-0.031); Immature Granulocyte Percent A 0.6 % (0-0.5); Lymphocytes Absolute Auto 0.63 K/mm3 (0.9-3.2); Lymphocytes Percent Auto 4.6 % (18.3-44.2); Mean Corpuscular Hemoglobin 29.7 pg (26-34); Mean Corpuscular Volume 92.8 fl (80-100); Mean Platelet Volume 9.8 fl (7.4-10.4); Monocytes Absolute Auto 0.8 K/mm3 (0.1-0.6); Monocytes Percent Auto 5.4 % (2.6-8.5); Neutrophils Absolute Auto 12.3 K/mm3 (1.3-6.7); Neutrophils Percent Auto 89.3 % (45.5-73.1); Platelet Count Result 186 k/mm3 (150-375); Red Cell Distribution Width 12.9 % (11.5-14.5); White Blood Count 13.8 K/mm3 (4.5-10.0)
[2023-09-20 06:21] LABS: Anion Gap 8 mmol/L (4-12); Blood Urea Nitrogen 16 mg/dL (7-17); Calcium 8.8 mg/dL (8.4-10.2); Carbon Dioxide 26 mmol/L (22-30); Chloride 100 mmol/L (98-107); Estimated Glomerular Filt Rate > 60; Glucose 139 mg/dL (65-110); Sodium 134 mmol/L (137-145)
--- NOTE | 2023-09-20 08:08 | WPDANESPN ---
Anes - Prog Note Post-Op Date/Time: 09/20/23 08:08 Cardiovascular status: normal Respiratory status: normal Airway patency: baseline Mental status: baseline Post-Op hydration status: normal Vital Signs: Last Vital Signs Temp 37.1 C 09/20/23 04:51 Pulse 70 09/20/23 04:51 Resp 18 09/20/23 04:51 BP 118/67 09/20/23 04:51 Pulse Ox 96 09/20/23 04:51 O2 Del Method Room Air 09/19/23 21:15 O2 Flow Rate 2 09/19/23 16:35 Pain Score (VAS): 0 I/O: Intake & Output 09/19/23 09/20/23 09/20/23 23:59 07:59 15:59 Intake Total 650 600 Output Total 300 500 Balance 350 100 Laboratory Tests 09/20/23 05:44 09/20/23 05:44 09/19/23 09/20/23 10:40 05:44 WBC 13.8 H RBC 3.90 L Hgb 11.6 L Hct 36.2 L MCV 92.8 MCH 29.7 MCHC 32.0 RDW 12.9 Plt Count 186 MPV 9.8 Immature Gran % (Auto) 0.6 H Neut % (Auto) 89.3 H Lymph % (Auto) 4.6 L [place] % (Auto) 5.4 Eos % (Auto) 0.0 Baso % (Auto) 0.1 L Lymph # (Auto) 0.63 L [place] # (Auto) 0.8 H Eos # (Auto) 0.0 Baso # (Auto) 0.0 Abs Immat Gran (auto) 0.08 H Absolute Neuts (auto) 12.3 H Absolute Nucleated RBC 0.000 Nucleated RBC % 0.0 Sodium 134 L Potassium 4.0 Chloride 100 Carbon Dioxide 26 Anion Gap 8 BUN 16 Creatinine 0.70 Estim Creat Clear Calc Not Reportable Estimated GFR > 60 Glucose 139 H Calcium 8.8 Blood Type B Positive Antibody Screen Negative Post-procedural complaints: none Patient Feedback: Patient satisfied with anesthetic care.
[2023-09-20] MEDS: ASPIRIN 325 MG ENTERIC TABLET PO (08:12)
[2023-09-20] MEDS: FAMOTIDINE 20 MG TABLET PO (08:12)
[2023-09-20] MEDS: CELECOXIB 200 MG CAPSULE PO (08:12)
[2023-09-20] MEDS: ROSUVASTATIN 5 MG TABLET PO (08:13)
[2023-09-20] MEDS: SENNA/DOCUSATE SODIUM TABLET 2 TAB PO (08:13)
[2023-09-20 10:36] VITALS: BP 116/54; PULSE 60; RESP 17; TEMP 36.8; O2SAT 95
[2023-09-20 13:21] VITALS: BP 118/49; PULSE 62; RESP 17; TEMP 36.6; O2SAT 96
--- NOTE | 2023-09-20 15:15 | PM.DS ---
DS: Admitting Diagnosis Discharge Date 09/20/23 Admitting Diagnosis right knee djd DS: Discharge Diagnosis Discharge Diagnosis (1) Right knee DJD: Code(s): M17.11 - Unilateral primary osteoarthritis, right knee Status: Acute Plan POD 1 DOING WELL WITH GOOD PT PROGRESS. OK TO DC HOME F/U IN 3WEEKS DS: Summary Hospital Course Reason for hospitalization: RIGHT TKA Hospital Course: PATIENT WAS ADMITTED S/P TOTAL KNEE ARTHROPLASTY FOR POSTOPERATIVE MEDICAL MANAGEMENT, PAIN CONTROL AND MOBILIZATION WITH PHYSICAL AND OCCUPATIONAL THERAPY. THE PATIENT PROGRESSED WELL WITH PT/OT. LABS AND VITALS REMAINED STABLE AND PAIN WELL CONTROLLED. THE PATIENT HAS BEEN CLEARED TO BE DISCHARGED HOME. FOLLOW UP APPOINTMENT SCHEDULED. DISCHARGE INSTRUCTIONS DISCUSSED AT LENGTH WITH THE PATIENT. MEDICATIONS REVIEWED. Status at Discharge Cognitive/behavioral status at discharge: STABLE Time Spent with Patient Time attestation: Total time spent providing and/or coordinating discharge services: Exam Extrem: Other: VSS AFEBRILE DRESSING DRY [place] INTACT NEG HOMANS SIGN, THIGH AND CALF NON TENDER Psych: Mental Status: mental status grossly normal Speech and movement: Normal speech and movement present Affect: normal affect Attitude: cooperative Thought process: Normal thought process present Thought content: Yes Normal thought content present Insight: Good insight present (Psych) Judgement: Good judgement present (Psych) DS: Data Data Completed and Pending Labs on day of discharge: Labs from last 24 hours 09/20/23 05:44 WBC 13.8 H RBC 3.90 L Hgb 11.6 L Hct 36.2 L MCV 92.8 MCH 29.7 MCHC 32.0 RDW 12.9 Plt Count 186 MPV 9.8 Immature Gran % (Auto) 0.6 H Neut % (Auto) 89.3 H Lymph % (Auto) 4.6 L [place] % (Auto) 5.4 Eos % (Auto) 0.0 Baso % (Auto) 0.1 L Lymph # (Auto) 0.63 L [place] # (Auto) 0.8 H Eos # (Auto) 0.0 Baso # (Auto) 0.0 Abs Immat Gran (auto) 0.08 H Absolute Neuts (auto) 12.3 H Absolute Nucleated RBC 0.000 Nucleated RBC % 0.0 Sodium 134 L Potassium 4.0 Chloride 100 Carbon Dioxide 26 Anion Gap 8 BUN 16 Creatinine 0.70 Estim Creat Clear Calc Not Reportable Estimated GFR > 60 Glucose 139 H Calcium 8.8 Procedures/Treatments: RIGHT TKA Discharge Plan Discharge Patient Disposition: Home, Self-Care Discharge Instructions: Care Coordination: [facility] ([phone]) has been arranged, they will contact you regarding first visit. NIVIA MORATAYA M.D. [facility] [address] [place] [address] POST OPERATIVE DISCHARGE INSTRUCTIONS FOLLOWING TOTAL KNEE REPLACEMENT SURGERY ? Your dressing will be changed prior to your discharge. You will be sent home with one additional dressing to be changed on post op day 7 by the home health RN. Your sobeida will be removed on the 14th day after surgery and steri-strips will be placed. Please practice good hand hygiene and do not touch your incision in order to prevent infection. ? You may shower with your dressing but do not submerge in a bath tub. ? Do not drive or operate machinery until you are released by Dr. Morataya. ? Do not walk without a walker for any reason until you are released by Dr. Morataya. ? Continue to use your ice machine. Please use a towel or pillow case to protect your skin before applying your ice machine. ? Do NOT place a pillow under your knee. You may use a pillow from the calf down if needed. This will prevent a flexion contracture postoperatively. ? You may begin use of your CPM machine at home if you have been given one pre-operatively. DO NOT USE WHILE YOU ARE SLEEPING. ? Your first post op appointment was sent to you via mail preoperatively. If you have any questions or are unable to make your appointment, please contact our office for scheduling questions. ? Your medications have been sent to your
== END 2023-09-20 16:25 | disposition home or self-care (01) ==
LOC: ANHSURGERY 10:01 → ANH2MED 17:08
PROVIDERS: PCP Family Medicine; Visit Provider Orthopaedic Surgery
PROC: (CPT 27447; principal; 2023-09-19 12:00)
DX: M17.11 Unilateral primary osteoarthritis, right knee (principal); G89.18 Other acute postprocedural pain; I10 Essential (primary) hypertension; E78.5 Hyperlipidemia, unspecified; K21.9 Gastro-esophageal reflux disease without esophagitis
CPT/HCPCS: 27447; 64447; 36415; 73560; 80048; 85025; 86850; 86900; 86901; 97110; 97116; 97161; 97165; 97530; A9270; C1713; C1776; J0171; J0690; J1100; J1885; J2270; J2405; J2704; J2795; J3010; J7120